=== PATIENT | female | born 1970 | race Caucasian/White ===

== ENCOUNTER 2020-05-07 08:28 | Day surgery (SDC) | payer BC ==
[~2020-05-07 08:28] MED LIST: Metoclopramide 10 MG/2 ML SDV IV PRN; Sodium Chloride 0.9% 1,000 ML IV SCH
[2020-05-07] MEDS ORDERED: Propofol 200 MG/20 ML SDV ONE (10:10)
--- NOTE | 2020-05-08 07:14 | OR ---
DATE OF OPERATION: 05/07/2020 SURGEON: Wood Martinez MD PREOPERATIVE DIAGNOSIS: Screening colonoscopy. POSTOPERATIVE DIAGNOSIS: Screening colonoscopy. PROCEDURE: Colonoscopy. ANESTHESIA: MAC. ESTIMATED BLOOD LOSS: None. COMPLICATIONS: None. INDICATION FOR PROCEDURE: The patient is a 49-year-old female with apparently a history of ulcerative colitis in the past. Denies any current problems. Did have a slight flare-up for the course of a week 2 months ago, but otherwise has been okay, here today for a followup colonoscopy. DESCRIPTION OF THE PROCEDURE: Informed consent was obtained from the patient. The patient was taken to the operating room and placed on the table in left lateral decubitus position. Monitored anesthesia care was administered. Digital rectal exam was performed and was normal. Colonoscope was then advanced through the anus and directed toward the cecum. Cecum was reached and identified by appendiceal orifice and ileocecal valve. Colonoscope was then slowly withdrawn. No polyps identified. No areas of inflammation identified. Rectum was also otherwise unremarkable. Colonoscope was then withdrawn. FINDINGS: Normal colonoscopy. RECOMMENDATIONS: Would recommend repeat colonoscopy in 3 years for ulcerative colitis surveillance. INGA/ANDREY /[id number]
== END 2020-05-07 11:05 | disposition home or self-care (01) ==
LOC: LB.SDS 08:28
PROVIDERS: ATTEND Surgery
DX: Z12.11 Encounter for screening for malignant neoplasm of colon (principal); Z87.19 Personal history of other diseases of the digestive system
CPT/HCPCS: J2704; J2765; J7030

== ENCOUNTER 2023-03-24 18:25 | Emergency (ER) | payer BC ==
[2023-03-24 19:34] LABS: INFLUENZA A NAA NEGATIVE (NEGATIVE); INFLUENZA B NAA NEGATIVE (NEGATIVE)
[2023-03-24 19:36] LABS: CORONAVIRUS COVID-19 NAA NEGATIVE (NEGATIVE)
== END 2023-03-24 19:55 | disposition home or self-care (01) ==
LOC: LB.ED 18:25
DX: J06.9 Acute upper respiratory infection, unspecified (principal); Z20.822 Contact with and (suspected) exposure to COVID-19; Z79.899 Other long term (current) drug therapy
CPT/HCPCS: 0240U; 87430; 99282; 99283

== ENCOUNTER 2024-12-17 07:59 | Day surgery (SDC) | payer BC ==
[2024-12-17] MEDS ORDERED: Propofol 200 MG/20 ML SDV ONE (09:30)
== END 2024-12-17 10:38 | disposition home or self-care (01) ==
LOC: LB.SDS 07:59
PROVIDERS: ATTEND Surgery
DX: Z12.11 Encounter for screening for malignant neoplasm of colon (principal); K31.89 Other diseases of stomach and duodenum; K44.9 Diaphragmatic hernia without obstruction or gangrene; R13.10 Dysphagia, unspecified; Z87.19 Personal history of other diseases of the digestive system; Z79.899 Other long term (current) drug therapy
CPT/HCPCS: 43239; 45380; J2704; J7030